=== PATIENT | female | born 1975 | race Caucasian/White ===

== ENCOUNTER 2018-08-23 09:51 | Inpatient (IN) | payer MEDICAID ==
[2018-08-23 09:58] VITALS: BMI 23.9
--- NOTE | 2018-08-23 11:27 | CT ---
Date of service: 08/23/2018 PROCEDURE: CT HEAD WITHOUT CONTRAST. HISTORY: left sided numbness COMPARISON: None available. TECHNIQUE: Axial computed tomography images were obtained through the head/brain without intravenous contrast. Radiation dose: Total exam DLP = 1996.76 mGy-cm. This CT exam was performed using one or more of the following dose reduction techniques: Automated exposure control, adjustment of the mA and/or kV according to patient size, and/or use of iterative reconstruction technique. FINDINGS: HEMORRHAGE: No intracranial hemorrhage. BRAIN: No mass effect or edema. Taylor-white matter differentiation appears intact. VENTRICLES: No hydrocephalus. CALVARIUM: Unremarkable. PARANASAL SINUSES: Unremarkable as visualized. No significant inflammatory changes. MASTOID AIR CELLS: Unremarkable as visualized. No inflammatory changes. OTHER FINDINGS: None. IMPRESSION: No acute intracranial pathology identified. Please note that MRI with diffusion imaging is more sensitive in the detection of acute ischemic event.
[2018-08-23 11:32] LABS: BASO # 0.1 K/uL (0.0-0.2); BASO % 0.8 % (0.0-2.0); EOS # 0.2 K/uL (0.0-0.7); EOS % 2.6 % (0.0-4.0); HEMOGLOBIN 11.4 g/dL (11.0-16.0); LYMPH # 2.3 K/uL (1.0-4.3); LYMPH % 36.2 % (20.0-40.0); MEAN CELL VOLUME 73.3 fL (81.0-99.0); MEAN CORPUSCULAR HEMOGLOBIN 22.9 pg (27.0-31.0); MEAN CORPUSCULAR HGB CONC 31.3 g/dL (33.0-37.0); MEAN PLATELET VOLUME 8.5 fL (7.2-11.7); MONO # 0.6 K/uL (0.0-0.8); NEUT # 3.2 K/uL (1.8-7.0); NEUT % 51.4 % (50.0-75.0); NRBC % 0.1 % (0.0-2.0); RBC 4.99 Mil/uL (3.80-5.20); RED CELL DISTRIBUTION WIDTH 17.7 % (11.5-14.5); WHITE BLOOD COUNT 6.3 K/uL (4.8-10.8)
[2018-08-23 11:38] LABS: PROTHROMBIN TIME 11.2 SECONDS (9.7-12.2)
[2018-08-23 11:43] LABS: SQUAMOUS EPITHIAL 1 /hpf (0-5); URINE BILIRUBIN NEGATIVE (NEGATIVE); URINE BLOOD NEGATIVE (NEGATIVE); URINE CLARITY Clear (Clear); URINE COLOR Straw (YELLOW); URINE GLUCOSE (UA) NORMAL (Normal); URINE LEUKOCYTE ESTERASE NEG Leu/uL (Negative); URINE PROTEIN NEGATIVE (NEGATIVE); URINE UROBILINOGEN NORMAL mg/dL (0.2-1.0)
[2018-08-23 11:46] LABS: HCG,QUALITATIVE URINE NEGATIVE (NEGATIVE)
[2018-08-23 11:56] LABS: ALB/GLOB RATIO 1.5 (1.0-2.1); ALBUMIN 4.8 g/dL (3.5-5.0); ALT/SGPT 17 U/L (9-52); AST/SGOT 25 U/L (14-36); BLOOD UREA NITROGEN 12 mg/dL (7-17); CALCIUM 9.5 mg/dl (8.6-10.4); GFR NON-AFRICAN AMERICAN > 60
[2018-08-23 12:08] LABS: CK-MB 0.51 ng/mL (0.0-3.38)
--- NOTE | 2018-08-23 13:08 | C.PDOC ---
History Of Present Illness 43 year old female presents to ED with complaint of left facial, arm, and leg numbness since yesterday morning. Patient reports subjective decrease in strength in the left arm. Patient has a PMHx of hypertension and ASD s/p repair in 2009 by catheterization. Patient denies visual changes, slurred speech, gait changes, chest pain, SOB ,and palpitations. Time Seen by Provider: 08/23/18 10:03 Chief Complaint (Nursing): Weakness/Neurological Deficit History Per: Patient History/Exam Limitations: no limitations Onset/Duration Of Symptoms: Days (1) Current Symptoms Are (Timing): Still Present Associated Symptoms Preceding Syncopal Episode: No Predromal Symptoms (Sudden Onset) Seizure Or Post-ictal Symptoms: None Severity: None - Symptoms Of CVA Associated Symptoms: denies: Impaired Speech, New Vision Deficit(Left), New Vision Deficit(Right) Past Medical History Reviewed: Historical Data, Nursing Documentation, Vital Signs Vital Signs: Last Vital Signs Temp 98.0 F 08/23/18 11:29 Pulse 51 L 08/23/18 11:29 Resp 18 08/23/18 11:29 BP 126/53 L 08/23/18 11:29 Pulse Ox 100 08/23/18 11:29 - Medical History PMH: Asthma, HTN Other PMH: ASD s/p repair by catheterization Family History: States: Unknown Family Hx - Social History Hx Tobacco Use: No Hx Alcohol Use: No Hx Substance Use: No - Immunization History Hx Tetanus Toxoid Vaccination: No Hx Influenza Vaccination: No Hx Pneumococcal Vaccination: No Review Of Systems Constitutional: Negative for: Fever, Chills, Weakness Eyes: Negative for: Vision Change Cardiovascular: Negative for: Chest Pain, Palpitations Respiratory: Negative for: Cough, Shortness of Breath Neurological: Positive for: Numbness (left facial, arm, and leg ), Other (decrease in strength in th left arm). Negative for: Weakness, Incoordination, Change in Speech, Dizziness Physical Exam - Physical Exam Appears: Non-toxic, No Acute Distress, Other (comfortable) Skin: Normal Color, Warm, Dry Head: Atraumatic, Normacephalic Eye(s): bilateral: Normal Inspection, PERRL, EOMI Neck: Normal ROM, Supple Chest: Symmetrical, No Deformity Cardiovascular: Rhythm Regular, Murmur (systolic murmur 3/6) Respiratory: No Accessory Muscle Use, No Rales, No Rhonchi, No Wheezing Gastrointestinal/Abdominal: Soft, No Tenderness Neurological/Psych: Oriented x3, Normal Speech, Normal Cognition, Normal Cranial Nerves, Normal Motor (5/5), Normal Sensation (subjective decreased sensation in the left arm and left leg) Gait: Steady ED Course And Treatment - Laboratory Results Result Diagrams: 08/23/18 11:22 08/23/18 11:22 Lab Results: PT 11.2 SECONDS (9.7-12.2) 08/23/18 11:22 INR 1.0 08/23/18 11:22 APTT 37 SECONDS (21-34) H 08/23/18 11:22 Troponin I < 0.0120 ng/mL (0.00-0.120) 08/23/18 11:22 Total Bilirubin 0.4 mg/dL (0.2-1.3) 08/23/18 11:22 AST 25 U/L (14-36) 08/23/18 11:22 ALT 17 U/L (9-52) 08/23/18 11:22 Alkaline Phosphatase 83 U/L (38-126) 08/23/18 11:22 Total Protein 8.1 g/dL (6.3-8.3) 08/23/18 11:22 Albumin 4.8 g/dL (3.5-5.0) 08/23/18 11:22 Globulin 3.3 gm/dL (2.2-3.9) 08/23/18 11:22 Albumin/Globulin Ratio 1.5 (1.0-2.1) 08/23/18 11:22 Urine Color Straw (YELLOW) 08/23/18 11:22 Urine Clarity Clear (Clear) 08/23/18 11:22 Urine pH 6.0 (5.0-8.0) 08/23/18 11:22 Ur Specific [place] 1.005 (1.003-1.030) 08/23/18 11:22 Urine Protein Negative mg/dL (NEGATIVE) 08/23/18 11:22 Urine Glucose (UA) Normal mg/dL (Normal) 08/23/18 11:22 Urine Ketones Negative mg/dL (NEGATIVE) 08/23/18 11:22 Urine Blood Negative (NEGATIVE) 08/23/18 11:22 Urine Nitrate Negative (NEGATIVE) 08/23/18 11:22 Urine Bilirubin Negative (NEGATIVE) 08/23/18 11:22 Urine Urobilinogen Normal mg/dL (0.2-1.0) 08/23/18 11:22 Ur Leukocyte Esterase Neg [place]/uL (Negative) 08/23/18 11:22 Urine WBC (Auto) < 1 /hpf (0-5) 08/23/18 11:22 Urine RBC (Auto) 1 /hpf (0-3) 08/23/18 11:22 Ur Squamous Epith Cells 1 /hpf (0-5) 08/23/18 11:22 Urine HCG, Qual Negative (NEGATIVE) 08/23/18 11:22 Urine HCG, Qual Negative (NEGATIVE) 08/23/18 11:22 ECG: Interpreted By Me, Viewed By Me ECG Rhythm: Sinus Bradycardia Interpretation Of ECG: Short [place] interval. Normal axis. No delta waves. No acute ST/T wave changes. Rate From EC O2 Sat by Pulse Oximetry: 100 - CT Scan/US Head CT Other Rad Studies (CT/US): Interpreted By Me, Read By Radiologist CT/US Interpretation: IMPRESSION: No acute intracranial pathology identified. Please note that MRI with diffusion imaging is more sensitive in the detection of acute ischemic event. Progress Note: Head CT and EKG ordered for patient. Labs ordered with troponin, UA, and U-preg. NIHSS Stroke Scale 2 - Date/Time Evaluation Performed Date Performed: 08/23/18 Time Performed: 10:10 When Was NIHSS Performed: Baseline - How Severe is the Stroke Level of Consciousness: 0=Alert LOC to Questions: 0=Both comments correct LOC to commands: 0=Obeys both correctly Best Gaze: 0=Normal Visual: 0=No visual loss Facial: 0=Normal Motor Arm - Left: 0=No drift Motor Arm - Right: 0=No drift Motor Leg - Left: 0=No drift Motor Leg - Right: 0=No drift Limb Ataxia: 0=Absent Sensory: 1=Mild to moderate loss (LEFT FACE, LEFT ARM, LEFT LEG) Best Language: 0=No aphasia Dysarthia: 0=Normal articulation Extinction & Inattention (Neglect): 0=Normal, no object Score: 1 rTPA Inclusion/Exclusion - Refusal of Treatment Patient Refused Treatment: No - Inclusion Criteria for Altepase Patient is 18 years or Older: Yes The Clinical Diagnosis of Ischemic Stroke That is Causing a Potentially Disabling Neurological Deficit: Yes Time of Onset is Well Established to be Less Than 270 Minute Before Treatment Would Begin: No Risk/Benefit Discussed With Patient/Family Member Present: No Disposition - Disposition Forms: [employer] (Welsh) - Scribe Statement The provider has reviewed the documentation as recorded by the Scribe (Yuki Emanuel) All medical record entries made by the Scribe were at my direction and personally dictated by me. I have reviewed the chart and agree that the record accurately reflects my personal performance of the history, physical exam, medical decision making, and the department course for this patient. I have also personally directed, reviewed, and agree with the discharge instructions and disposition.
--- NOTE | 2018-08-23 13:57 | CP.PCM.HP ---
History of Present Illness - History of Present Illness History of Present Illness: PGY1 medicine history and physician for Dr. Israel Hutchins: Whitney [phone] CC: left sided numbness and tingling This is a 43 year old female with PMH of HTN, asthma, ASD with repair 2009 who presents left sided body numbness and tingling since 8 am yesterday (08/22). Pt states that she was working when the symptoms started, but not doing anything out of the ordinary. She describes complete left sided pain and in tingling, including chest and abdomen. Chest pain is described as 5/10, pressure, nonradiating and a little worse when she presses on it. Denies fever, chills, falls, syncope, slurred speech, visual changes, headache, dizziness, lightheadedness, sob, abdominal pain, n/v/d, recent illness, leg pain or swelling, recent stressors, rash. Pt last saw her PMD 5 days for a check up. He referred her to a retinal speci alist to evaluate her retina. Pt unsure why. he also sent her for a pap smear. PMD: Florentino Kent PMH: HTN, asthma, ASD with repair 2009 PSH: ASD repair 2009 meds: Benazapril 10 mg PO daily, Monteleukast 10 mg PO every once in a while, Ventolin inhaler Allx: none Fhx: mother with HTN. grandmother with brain cancer diagnosed at age 64. SHx: born in [place], came here in 2007. 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 Denies drug, alcohol use. Denies smoking. Present on Admission - Present on Admission Any Indicators Present on Admission: No Review of Systems - Review of Systems All systems: reviewed and no additional remarkable complaints except (as per HPI) - Gastrointestinal Gastrointestinal: Constipation (for half a year) Past Patient History - Past Social History Smoking Status: Never Smoked - CARDIAC Hx Hypertension: Yes - PULMONARY Hx Asthma: Yes - PSYCHIATRIC Hx Substance Use: No - SURGICAL HISTORY Hx Surgeries: Yes Other/Comment: ASD s/p closure - ANESTHESIA Hx Anesthesia: Yes Meds Allergies/Adverse Reactions: Allergies Allergy/AdvReac Type Severity Reaction Status Date / Time No Known Allergies Allergy Verified 08/23/18 09:57 Physical Exam - Constitutional Appears: Non-toxic, No Acute Distress - Head Exam Head Exam: ATRAUMATIC, NORMAL INSPECTION - Eye Exam Eye Exam: EOMI, Normal appearance Pupil Exam: Mydriatic (slightly, but reactive) - ENT Exam ENT Exam: Mucous Membranes Moist - Respiratory Exam Respiratory Exam: Clear to Auscultation Bilateral. absent: Decreased Breath Sounds, Rales, Rhonchi, Wheezes, Stridor - Cardiovascular Exam Cardiovascular Exam: Bradycardia (at approximately 60), +S1, +S2, Systolic Murmur - GI/Abdominal Exam GI & Abdominal Exam: Normal Bowel Sounds, Soft. absent: Distended, Firm, Rebou nd, Rigid, Tenderness - Extremities Exam Extremities exam: Positive for: normal capillary refill, normal inspection. Negative for: calf tenderness, pedal edema, tenderness - Back Exam Back exam: NORMAL INSPECTION. absent: CVA tenderness (L), CVA tenderness (R), rash noted - Neurological Exam Neurological exam: Alert, CN II-XII Intact (decreased sensation to the left side of the face), Normal Gait, Oriented x3, Reflexes Normal Additional comments: 4/5 left upper extremity strength. 5/5 strength in right upper extremity. 5/5 strength in bilateral lower extremity. decreased sensation left sided c4-t1 unable to distingish between pin prick or dull sensation on the left upper extremity No pronator drift Normal babinski - Psychiatric Exam Psychiatric exam: Anxious, Normal Affect, Normal Mood - Skin Skin Exam: Dry, Normal Color, Warm Additional comments: no rash Results - Vital Signs Recent Vital Signs: Last Vital Signs Temp 98.0 F 08/23/18 11:29 Pulse 50 L 08/23/18 13:36 Resp 19 08/23/18 13:36 BP 118/53 L 08/23/18 13:36 Pulse Ox 100 08/23/18 13:36 - Labs Result Diagrams: 08/23/18 11:22 08/23/18 11:22 Labs: Laboratory Results - last 24 hr 08/23/18 08/23/18 08/23/18 10:55 11:22 11:22 WBC 6.3 RBC 4.99 Hgb 11.4 Hct 36.6 MCV 73.3 L D MCH 22.9 L MCHC 31.3 L RDW 17.7 H Plt Count 262 MPV 8.5 Neut % (Auto) 51.4 Lymph % (Auto) 36.2 [place] % (Auto) 9.0 Eos % (Auto) 2.6 Baso % (Auto) 0.8 Neut # (Auto) 3.2 Lymph # (Auto) 2.3 [place] # (Auto) 0.6 Eos # (Auto) 0.2 Baso # (Auto) 0.1 PT 11.2 INR 1.0 APTT 37 H Sodium Potassium Chloride Carbon Dioxide Anion Gap BUN Creatinine Est GFR ( Amer) Est GFR (Non-Af Amer) POC Glucose (mg/dL) 114 H Random Glucose Calcium Total Bilirubin AST ALT Alkaline Phosphatase Total Creatine Kinase CK-MB (Mass) Troponin I Total Protein Albumin Globulin Albumin/Globulin Ratio Urine Color Urine Clarity Urine pH Ur Specific [place] Urine Protein Urine Glucose (UA) Urine Ketones Urine Blood Urine Nitrate Urine Bilirubin Urine Urobilinogen Ur Leukocyte Esterase Urine WBC (Auto) Urine RBC (Auto) Ur Squamous Epith Cells Urine HCG, Qual 08/23/18 08/23/18 11:22 11:22 WBC RBC Hgb Hct MCV MCH MCHC RDW Plt Count MPV Neut % (Auto) Lymph % (Auto) [place] % (Auto) Eos % (Auto) Baso % (Auto) Neut # (Auto) Lymph # (Auto) [place] # (Auto) Eos # (Auto) Baso # (Auto) PT INR APTT Sodium 140 Potassium 4.4 Chloride 105 Carbon Dioxide 24 Anion Gap 15 BUN 12 Creatinine 0.5 L Est GFR ( Amer) > 60 Est GFR (Non-Af Amer) > 60 POC Glucose (mg/dL) Random Glucose 97 D Calcium 9.5 Total Bilirubin 0.4 AST 25 ALT 17 Alkaline Phosphatase 83 Total Creatine Kinase 49 CK-MB (Mass) 0.51 Troponin I < 0.0120 Total Protein 8.1 Albumin 4.8 Globulin 3.3 Albumin/Globulin Ratio 1.5 Urine Color Straw Urine Clarity Clear Urine pH 6.0 Ur Specific [place] 1.005 Urine Protein Negative Urine Glucose (UA) Normal Urine Ketones Negative Urine Blood Negative Urine Nitrate Negative Urine Bilirubin Negative Urine Urobilinogen Normal Ur Leukocyte Esterase Neg Urine WBC (Auto) < 1 Urine RBC (Auto) 1 Ur Squamous Epith Cells 1 Urine HCG, Qual Negative Assessment & Plan - Assessment and Plan (Free Text) Assessment: This is a 43 year old female with PMH of HTN, asthma, ASD with repair 2009 who presents left sided body numbness and tingling since 8 am yesterday (08/22). Plan: Left sided paresthesias Head CT shows no abnormality MRI brain pending MRA head and neck without contrast pending CXR pending Echocardiogram with bubble study pending EKG shows sinus dennise cardia at 54 with short pr interval; no acute STTW changes. ASA 325 given in the ED Will start ASA 81 mg PO once daily in am Will give crestor 20 mg PO now, continue tomorrow evening as well. Neurology, Dr. Ferris, consulted. Recommendations appreciated. Aspiration, fall, seizure precautions Permissive hypertension at this time Bradycardia Currently asymptomatic Pt is on telemetry Continue to monitor Hx of HTN Home benazepril 10 mg for now to allow for permissive htn Lipid panel pending HgbA1c pending Hx of asthma Hold home Monteleukast for now Will consider albuterol if needed PPx: GI: none VTE: SCDs HHD Aspiration, fall, seizure precautions PT/OT eval
--- NOTE | 2018-08-23 15:57 | RAD ---
Chest x-ray single frontal view HISTORY: Bradycardia. COMPARISON: 07/12/2014 FINDINGS: Mild venous congestion. Heart size within normal limits. Bibasilar breast shadows. IMPRESSION: Mild venous congestion. Bibasilar breast shadows.
--- NOTE | 2018-08-23 16:15 | CP.PCM.CON ---
<Joann Henderson P - Last Filed: 08/23/18 17:55> History of Present Illness - History of Present Illness History of Present Illness: Consult note for Dr. Ferris. 43 year old female with PMHx of HTN, asthma, ASD with repair 2009 who presented to the ED with L sided numbness, tingling and weakness extending from head to the feet. She also reports pain to the entire L side of her body. Symptoms began yesterday at 8am. Patient states she has felt similar symptoms in the past prior to having her ASD repaired in 2009. Patient denies trauma, slurred speech, visual changes, headache, dizziness, lightheadedness. CT Head shows no acute intracranial pathology. MRI brain and MRA head/neck ordered. PMH: HTN, asthma, ASD with repair 2009 PSH: ASD repair 2009 meds: Benazapril 10 mg PO daily, Monteleukast 10 mg PO every once in a while, Ventolin inhaler Allg: none Fhx: mother with HTN. grandmother with brain cancer diagnosed at age 64. SHx: Denies illicit drug, alcohol use, and smoking. Review of Systems - Review of Systems All systems: reviewed and no additional remarkable complaints except (as per HPI) Past Patient History - Past Social History Smoking Status: Never Smoked - CARDIAC Hx Hypertension: Yes - PULMONARY Hx Asthma: Yes - PSYCHIATRIC Hx Substance Use: No - SURGICAL HISTORY Hx Surgeries: Yes Other/Comment: ASD s/p closure - ANESTHESIA Hx Anesthesia: Yes Meds Allergies/Adverse Reactions: Allergies Allergy/AdvReac Type Severity Reaction Status Date / Time No Known Allergies Allergy Verified 08/23/18 09:57 - Medications Medications: Current Medications Aspirin (Ecotrin) 81 mg PO DAILY [facility] Rosuvastatin Calcium (Crestor) 20 mg PO HS [facility] Physical Exam - Constitutional Appears: Non-toxic, No Acute Distress - Head Exam Head Exam: ATRAUMATIC, NORMOCEPHALIC - Eye Exam Eye Exam: EOMI, Normal appearance, PERRL - ENT Exam ENT Exam: Mucous Membranes Moist - Neck Exam Neck exam: Positive for: Full Rom, Normal Inspection - Respiratory Exam Respiratory Exam: NORMAL BREATHING PATTERN. absent: Respiratory Distress - Extremities Exam Extremities exam: Positive for: full ROM, normal inspection - Neurological Exam Neurological exam: Alert, CN II-XII Intact, Oriented x3 Additional comments: Decreased sensation to soft touch on the L compared to the R. 3+ L bicept and L patellar DTRs, 2+ on the R. 5/5 muscle strength all extremities. - Psychiatric Exam Psychiatric exam: Normal Affect, Normal Mood - Skin Skin Exam: Dry, Intact, Normal Color, Warm Results - Vital Signs Recent Vital Signs: Last Vital Signs Temp 98.2 F 08/23/18 15:54 Pulse 50 L 08/23/18 15:54 Resp 16 08/23/18 15:54 BP 100/47 L 08/23/18 15:54 Pulse Ox 99 08/23/18 15:54 - Labs Result Diagrams: 08/23/18 11:22 08/23/18 11:22 Labs: Laboratory Results - last 24 hr 08/23/18 08/23/18 08/23/18 10:55 11:22 11:22 WBC 6.3 RBC 4.99 Hgb 11.4 Hct 36.6 MCV 73.3 L D MCH 22.9 L MCHC 31.3 L RDW 17.7 H Plt Count 262 MPV 8.5 Neut % (Auto) 51.4 Lymph % (Auto) 36.2 Hanson % (Auto) 9.0 Eos % (Auto) 2.6 Baso % (Auto) 0.8 Neut # (Auto) 3.2 Lymph # (Auto) 2.3 Hanson # (Auto) 0.6 Eos # (Auto) 0.2 Baso # (Auto) 0.1 PT 11.2 INR 1.0 APTT 37 H Sodium Potassium Chloride Carbon Dioxide Anion Gap BUN Creatinine Est GFR ( Amer) Est GFR (Non-Af Amer) POC Glucose (mg/dL) 114 H Random Glucose Calcium Total Bilirubin AST ALT Alkaline Phosphatase Total Creatine Kinase CK-MB (Mass) Troponin I Total Protein Albumin Globulin Albumin/Globulin Ratio Urine Color Urine Clarity Urine pH Ur Specific [place] Urine Protein Urine Glucose (UA) Urine Ketones Urine Blood Urine Nitrate Urine Bilirubin Urine Urobilinogen Ur Leukocyte Esterase Urine WBC (Auto) Urine RBC (Auto) Ur Squamous Epith Cells Urine HCG, Qual 08/23/18 08/23/18 11:22 11:22 WBC RBC Hgb Hct MCV MCH MCHC RDW Plt Count MPV Neut % (Auto) Lymph % (Auto) Hanson % (Auto) Eos % (Auto) Baso % (Auto) Neut # (Auto) Lymph # (Auto) Hanson # (Auto) Eos # (Auto) Baso # (Auto) PT INR APTT Sodium 140 Potassium 4.4 Chloride 105 Carbon Dioxide 24 Anion Gap 15 BUN 12 Creatinine 0.5 L Est GFR ( Amer) > 60 Est GFR (Non-Af Amer) > 60 POC Glucose (mg/dL) Random Glucose 97 D Calcium 9.5 Total Bilirubin 0.4 AST 25 ALT 17 Alkaline Phosphatase 83 Total Creatine Kinase 49 CK-MB (Mass) 0.51 Troponin I < 0.0120 Total Protein 8.1 Albumin 4.8 Globulin 3.3 Albumin/Globulin Ratio 1.5 Urine Color Straw Urine Clarity Clear Urine pH 6.0 Ur Specific [place] 1.005 Urine Protein Negative Urine Glucose (UA) Normal Urine Ketones Negative Urine Blood Negative Urine Nitrate Negative Urine Bilirubin Negative Urine Urobilinogen Normal Ur Leukocyte Esterase Neg Urine WBC (Auto) < 1 Urine RBC (Auto) 1 Ur Squamous Epith Cells 1 Urine HCG, Qual Negative Assessment & Plan - Assessment and Plan (Free Text) Assessment: 43 year old female presents with L sided weakness, numbness and tingling Plan: CT head: no acute intracranial pathology MRI brain: No evidence of intracranial hemorrhage or infarction MRA head/neck-pending -Start ASA 81mg PO daily -Start Crestor 20mg PO daily -Permissive hypertension for 24 hours. Treat if BP over 220/110. D[address] Barrington Henderson, PGY-1 <Cesar Ferris - Last Filed: 08/24/18 11:03> Meds - Medications Medications: Current Medications Aspirin (Ecotrin) 81 mg PO DAILY [facility] Ferrous Sulfate (Feosol) 325 mg PO DAILY [facility] Rosuvastatin Calcium (Crestor) 20 mg PO [facility] Last Admin: 08/23/18 21:19 Dose: 20 mg Results - Vital Signs Recent Vital Signs: Last Vital Signs Temp 98.0 F 08/24/18 07:10 Pulse 53 L 08/24/18 07:10 Resp 20 08/24/18 07:10 BP 116/57 L 08/24/18 07:10 Pulse Ox 100 08/24/18 07:10 - Labs Result Diagrams: 08/24/18 07:07 08/24/18 07:07 Labs: Laboratory Results - last 24 hr 08/23/18 08/23/18 08/23/18 10:55 11:22 11:22 WBC 6.3 RBC 4.99 Hgb 11.4 Hct 36.6 MCV 73.3 L D MCH 22.9 L MCHC 31.3 L RDW 17.7 H Plt Count 262 MPV 8.5 Neut % (Auto) 51.4 Lymph % (Auto) 36.2 Hanson % (Auto) 9.0 Eos % (Auto) 2.6 Baso % (Auto) 0.8 Neut # (Auto) 3.2 Lymph # (Auto) 2.3 Hanson # (Auto) 0.6 Eos # (Auto) 0.2 Baso # (Auto) 0.1 PT 11.2 INR 1.0 APTT 37 H Sodium Potassium Chloride Carbon Dioxide Anion Gap BUN Creatinine Est GFR ( Amer) Est GFR (Non-Af Amer) POC Glucose (mg/dL) 114 H Random Glucose Hemoglobin A1c Calcium Phosphorus Magnesium Iron TIBC % Saturation Ferritin Total Bilirubin AST ALT Alkaline Phosphatase Total Creatine Kinase CK-MB (Mass) Troponin I Total Protein Albumin Globulin Albumin/Globulin Ratio Triglycerides Cholesterol LDL Cholesterol Direct HDL Cholesterol Urine Color Urine Clarity Urine pH Ur Specific [place] Urine Protein Urine Glucose (UA) Urine Ketones Urine Blood Urine Nitrate Urine Bilirubin Urine Urobilinogen Ur Leukocyte Esterase Urine WBC (Auto) Urine RBC (Auto) Ur Squamous Epith Cells Urine HCG, Qual Urine Opiates Screen Urine Methadone Screen Ur Barbiturates Screen Ur Phencyclidine Scrn Ur Amphetamines Screen U Benzodiazepines Scrn U Oth Cocaine Metabols U Cannabinoids Screen 08/23/18 08/23/18 08/23/18 11:22 11:22 16:18 WBC RBC Hgb Hct MCV MCH MCHC RDW Plt Count MPV Neut % (Auto) Lymph % (Auto) Hanson % (Auto) Eos % (Auto) Baso % (Auto) Neut # (Auto) Lymph # (Auto) Hanson # (Auto) Eos # (Auto) Baso # (Auto) PT INR APTT Sodium 140 Potassium 4.4 Chloride 105 Carbon Dioxide 24 Anion Gap 15 BUN 12 Creatinine 0.5 L Est GFR ( Amer) > 60 Est GFR (Non-Af Amer) > 60 POC Glucose (mg/dL) Random Glucose 97 D Hemoglobin A1c Calcium 9.5 Phosphorus Magnesium Iron TIBC % Saturation Ferritin Total Bilirubin 0.4 AST 25 ALT 17 Alkaline Phosphatase 83 Total Creatine Kinase 49 CK-MB (Mass) 0.51 Troponin I < 0.0120 Total Protein 8.1 Albumin 4.8 Globulin 3.3 Albumin/Globulin Ratio 1.5 Triglycerides Cholesterol LDL Cholesterol Direct HDL Cholesterol Urine Color Straw Urine Clarity Clear Urine pH 6.0 Ur Specific [place] 1.005 Urine Protein Negative Urine Glucose (UA) Normal Urine Ketones Negative Urine Blood Negative Urine Nitrate Negative Urine Bilirubin Negative Urine Urobilinogen Normal Ur Leukocyte Esterase Neg Urine WBC (Auto) < 1 Urine RBC (Auto) 1 Ur Squamous Epith Cells 1 Urine HCG, Qual Negative Urine Opiates Screen Negative Urine Methadone Screen Negative Ur Barbiturates Screen Negative Ur Phencyclidine Scrn Negative Ur Amphetamines Screen Negative U Benzodiazepines Scrn Negative U Oth Cocaine Metabols Negative U Cannabinoids Screen Negative 08/23/18 08/23/18 08/24/18 17:43 22:46 07:07 WBC 5.4 RBC 5.01 Hgb 11.4 Hct 36.4 MCV 72.8 L MCH 22.8 L MCHC 31.3 L RDW 17.7 H Plt Count 255 MPV 8.4 Neut % (Auto) 51.5 Lymph % (Auto) 35.2 Hanson % (Auto) 9.5 Eos % (Auto) 3.2 Baso % (Auto) 0.6 Neut # (Auto) 2.8 Lymph # (Auto) 1.9 Hanson # (Auto) 0.5 Eos # (Auto) 0.2 Baso # (Auto) 0.0 PT INR APTT Sodium Potassium Chloride Carbon Dioxide Anion Gap BUN Creatinine Est GFR ( Amer) Est GFR (Non-Af Amer) POC Glucose (mg/dL) Random Glucose Hemoglobin A1c Calcium Phosphorus Magnesium Iron TIBC % Saturation Ferritin Total Bilirubin AST ALT Alkaline Phosphatase Total Creatine Kinase 44 39 CK-MB (Mass) 0.39 0.26 Troponin I < 0.0120 < 0.0120 Total Protein Albumin Globulin Albumin/Globulin Ratio Triglycerides Cholesterol LDL Cholesterol Direct HDL Cholesterol Urine Color Urine Clarity Urine pH Ur Specific [place] Urine Protein Urine Glucose (UA) Urine Ketones Urine Blood Urine Nitrate Urine Bilirubin Urine Urobilinogen Ur Leukocyte Esterase Urine WBC (Auto) Urine RBC (Auto) Ur Squamous Epith Cells Urine HCG, Qual Urine Opiates Screen Urine Methadone Screen Ur Barbiturates Screen Ur Phencyclidine Scrn Ur Amphetamines Screen U Benzodiazepines Scrn U Oth Cocaine Metabols U Cannabinoids Screen 08/24/18 08/24/18 08/24/18 07:07 07:07 07:07 WBC RBC Hgb Hct MCV MCH MCHC RDW Plt Count MPV Neut % (Auto) Lymph % (Auto) Hanson % (Auto) Eos % (Auto) Baso % (Auto) Neut # (Auto) Lymph # (Auto) Hanson # (Auto) Eos # (Auto) Baso # (Auto) PT INR APTT Sodium 133 Potassium 4.0 Chloride 102 Carbon Dioxide 21 L Anion Gap 15 BUN 11 Creatinine 0.4 L Est GFR ( Amer) > 60 Est GFR (Non-Af Amer) > 60 POC Glucose (mg/dL) Random Glucose 117 H D Hemoglobin A1c 6.2 Calcium 8.8 Phosphorus 3.6 Magnesium 2.0 Iron 30 L TIBC 402 % Saturation 7 L Ferritin 5.0 Total Bilirubin 0.6 AST 28 ALT 10 Alkaline Phosphatase 67 Total Creatine Kinase CK-MB (Mass) Troponin I Total Protein 6.9 Albumin 4.2 Globulin 2.7 Albumin/Globulin Ratio 1.5 Triglycerides 130 Cholesterol 170 LDL Cholesterol Direct 112 HDL Cholesterol 51 Urine Color Urine Clarity Urine pH Ur Specific [place] Urine Protein Urine Glucose (UA) Urine Ketones Urine Blood Urine Nitrate Urine Bilirubin Urine Urobilinogen Ur Leukocyte Esterase Urine WBC (Auto) Urine RBC (Auto) Ur Squamous Epith Cells Urine HCG, Qual Urine Opiates Screen Urine Methadone Screen Ur Barbiturates Screen Ur Phencyclidine Scrn Ur Amphetamines Screen U Benzodiazepines Scrn U Oth Cocaine Metabols U Cannabinoids Screen Attending/Attestation - Attestation I have personally seen and examined this patient.: Yes I have fully participated in the care of the patient.: Yes I have reviewed all pertinent clinical information: Yes Notes (Text): I agree with the assessment and plan. The patient does have some mild left side numbness, but does not appear to have any other complaints. She is improving. Will follow imaging and treat accordingly. Thank you for this consultation.
[2018-08-23 16:52] LABS: BARBITURATES, UR NEGATIVE (NEGATIVE); BENZODIAZEPINES, UR NEGATIVE (NEGATIVE); OPIATES, UR NEGATIVE (NEGATIVE); PHENCYCLIDINE, UR NEGATIVE (NEGATIVE)
--- NOTE | 2018-08-23 17:02 | MRI ---
Date of service: 08/23/2018 PROCEDURE: MR Angiography of the neck without contrast HISTORY: History of ASD repair, presents with numbness/tingling COMPARISON: None available. TECHNIQUE: 3D [id number] angiography of the neck was performed. Rotating maximum intensity projection images of the cervical carotid and vertebral arteries were generated. The origins of the common carotid arteries were not visualized, which is a limitation inherent to the non-contrast time of flight technique. FINDINGS: RIGHT CAROTID ARTERIES: Common Carotid Artery: Normal. Carotid Bifurcation: Normal. Internal Carotid Artery:Normal. External Carotid Artery (proximal branches): Normal. LEFT CAROTID ARTERIES: Common Carotid Artery: Normal. Carotid Bifurcation: Normal. Internal Carotid Artery:Normal. External Carotid Artery (proximal branches): Normal. VERTEBRAL ARTERIES: Right Vertebral Artery: Normal. Left Vertebral Artery: Normal. OTHER FINDINGS: None. IMPRESSION: Normal MR Angiography of the neck.
--- NOTE | 2018-08-23 17:07 | MRI ---
Date of service: 08/23/2018 PROCEDURE: MRI BRAIN WITHOUT CONTRAST HISTORY: LEFT ARM/LEG NUMBNESS COMPARISON: Comparison made with prior CT scan the brain 08/23/2018 10:35 a.m.. TECHNIQUE: Multiplanar, multisequence MR images of the brain were obtained without intravenous contrast enhancement. FINDINGS: HEMORRHAGE: No acute parenchymal, subarachnoid nor extra-axial hemorrhage. No evidence of hemosiderin deposition is identified on gradient echo weighted sequence. DWI: No evidence of an acute or early subacute infarction. BRAIN PARENCHYMA: No mass effect or edema. No atrophy or chronic microvascular ischemic changes. VENTRICLES: No obstructive hydrocephalus. CRANIUM: Unremarkable. ORBITS: Orbits and contents unremarkable. PARANASAL SINUSES/MASTOIDS: Mild mucosal thickening seen in the maxillary sinuses left greater than right. Minor mucosal thickening also seen in the few ethmoid air cells. VASCULAR SYSTEM: Visualized major vascular flow voids at skull base patent. OTHER FINDINGS: None. IMPRESSION: No evidence of acute intracranial hemorrhage or infarction. Mild mucoperiosteal inflammatory changes both maxillary sinuses and few ethmoid air cells
--- NOTE | 2018-08-23 18:13 | MRI ---
Date of service: 08/23/2018 PROCEDURE: Magnetic Resonance Angiography Brain HISTORY: History of ASD repair, presents with numbness/tingling COMPARISON: Correlation made with concurrent MRI of the brain. TECHNIQUE: 3D time of flight MR angiography of the intracranial arteries was performed. Rotating maximum intensity projection images were generated. FINDINGS: INTERNAL CAROTID ARTERIES: Unremarkable. The skull base, petrous, cavernous and supraclinoid segments are bilaterally widely patient. ANTERIOR CEREBRAL ARTERIES: Unremarkable. A1 and A2 segments are widely patent. Smaller distal branches unremarkable, as visualized. MIDDLE CEREBRAL ARTERIES: Unremarkable. M1 and M2 segments are widely patent. Perisylvian branches grossly symmetric. POSTERIOR CIRCULATION: Basilar Artery: Unremarkable. Distal Vertebral Arteries: Unremarkable. Posterior Cerebral Arteries: Unremarkable. Posterior Inferior Cerebellar Arteries: Unremarkable. ANEURYSM/ VASCULAR MALFORMATIONS: None. OTHER FINDINGS: None. IMPRESSION: Unremarkable MR angiography of the brain.
[2018-08-23 18:18] LABS: CK-MB 0.39 ng/mL (0.0-3.38)
[2018-08-23] MEDS ORDERED: Pneumococcal 23-Valent Vaccine IM ONE (19:11)
[2018-08-23] MEDS ORDERED: Influenza Vaccine 60 mcg/0.5 mL SYR (4YR UP) IM ONE (20:06)
[2018-08-23 23:13] LABS: CK-MB 0.26 ng/mL (0.0-3.38)
[2018-08-24 01:58] VITALS: RESP 20
[2018-08-24 07:14] LABS: BASO % 0.6 % (0.0-2.0); EOS # 0.2 K/uL (0.0-0.7); EOS % 3.2 % (0.0-4.0); HEMOGLOBIN 11.4 g/dL (11.0-16.0); LYMPH # 1.9 K/uL (1.0-4.3); LYMPH % 35.2 % (20.0-40.0); MEAN CELL VOLUME 72.8 fL (81.0-99.0); MEAN CORPUSCULAR HEMOGLOBIN 22.8 pg (27.0-31.0); MEAN CORPUSCULAR HGB CONC 31.3 g/dL (33.0-37.0); MEAN PLATELET VOLUME 8.4 fL (7.2-11.7); MONO # 0.5 K/uL (0.0-0.8); MONO % 9.5 % (0.0-10.0); NEUT # 2.8 K/uL (1.8-7.0); NEUT % 51.5 % (50.0-75.0); NRBC % 0.1 % (0.0-2.0); RBC 5.01 Mil/uL (3.80-5.20); RED CELL DISTRIBUTION WIDTH 17.7 % (11.5-14.5); WHITE BLOOD COUNT 5.4 K/uL (4.8-10.8)
[2018-08-24 07:29] LABS: IRON 30 ug/dL (37-170)
[2018-08-24 07:40] LABS: % IRON SATURATION 7 (20-55); TOTAL IRON BINDING CAPACITY 402 ug/dL (250-450)
[2018-08-24 07:45] LABS: ALBUMIN 4.2 g/dL (3.5-5.0); BLOOD UREA NITROGEN 11 mg/dL (7-17); CALCIUM 8.8 mg/dl (8.6-10.4); GFR NON-AFRICAN AMERICAN > 60
[2018-08-24 07:46] LABS: ALB/GLOB RATIO 1.5 (1.0-2.1); ALT/SGPT 10 U/L (9-52); AST/SGOT 28 U/L (14-36); HDL CHOLESTEROL 51 mg/dL (30-70)
[2018-08-24 07:50] LABS: LDL CHOLESTEROL 112 mg/dL (0-129)
[2018-08-24] MEDS ORDERED: Ferric Sodium Gluconat Complex 62.5 mg/5 ml Vial IVPB ONE (10:00)
--- NOTE | 2018-08-24 11:54 | CP.PCM.PN ---
Subjective - Date & Time of Evaluation Date of Evaluation: 08/24/18 Time of Evaluation: 11:53 - Subjective Subjective: Neuro F/U Note: Mrs. Zavala was evaluated this morning at bedside. She states that her symptoms have resolved and offers no new complaints today. Denies h/a, dizziness, visual changes, chest pain, sob, n/v/d, fever/chills. Objective - Vital Signs/Intake and Output Vital Signs (last 24 hours): Temp Pulse Resp BP Pulse Ox 98.0 F 53 L 20 116/57 L 100 08/24/18 07:10 08/24/18 07:10 08/24/18 07:10 08/24/18 07:10 08/24/18 07:10 - Medications Medications: Current Medications Aspirin (Ecotrin) 81 mg PO DAILY [facility] Last Admin: 08/24/18 11:15 Dose: 81 mg Ferrous Sulfate (Feosol) 325 mg PO DAILY [facility] Rosuvastatin Calcium (Crestor) 20 mg PO HS [facility] Last Admin: 08/23/18 21:19 Dose: 20 mg - Labs Labs: 08/24/18 07:07 08/24/18 07:07 PT 11.2 SECONDS (9.7-12.2) 08/23/18 11:22 INR 1.0 08/23/18 11:22 APTT 37 SECONDS (21-34) H 08/23/18 11:22 - Constitutional Appears: Well, Non-toxic, No Acute Distress - Head Exam Head Exam: ATRAUMATIC, NORMAL INSPECTION, NORMOCEPHALIC - Eye Exam Eye Exam: EOMI, Normal appearance, PERRL Pupil Exam: NORMAL ACCOMODATION, PERRL - ENT Exam ENT Exam: Mucous Membranes Moist - Neck Exam Neck Exam: Full ROM, Normal Inspection - Respiratory Exam Respiratory Exam: NORMAL BREATHING PATTERN - Extremities Exam Extremities Exam: Full ROM - Back Exam Back Exam: Full ROM - Neurological Exam Neurological Exam: Alert, Awake, CN II-XII Intact, Oriented x3, Reflexes Normal Neuro motor strength exam: Left Upper Extremity: 5, Right Upper Extremity: 5, Left Lower Extremity: 5, Right Lower Extremity: 5 Additional comments: no motor or sensory deficits - Psychiatric Exam Psychiatric exam: Normal Affect, Normal Mood - Skin Skin Exam: Normal Color Assessment and Plan (1) Left-sided weakness Assessment & Plan: -Imaging reviewed -Neurologically cleared for d/c. -F/U with PMD as outpatient. -Continue asa and statin. No Gonzalez DNP, [employer] Discussed with Dr. Ferris Status: Acute
--- NOTE | 2018-08-24 13:28 | CARD ---
APPROVED REPORT Date of service: 08/23/2018 EKG Measurement Heart [id number] [place] [id number] <Conclusion> Sinus bradycardia with short NE Otherwise normal ECG
--- NOTE | 2018-08-24 13:28 | CARD ---
APPROVED REPORT Date of service: 08/23/2018 EKG Measurement Heart [id number] <Conclusion> Normal sinus rhythm with sinus arrhythmia Normal ECG
--- NOTE | 2018-08-24 13:28 | CARD ---
APPROVED REPORT Date of service: 08/23/2018 EKG Measurement Heart [id number] [place] [id number] <Conclusion> Sinus bradycardia Possible Left atrial enlargement Borderline ECG
--- NOTE | 2018-08-24 14:18 | CARD ---
APPROVED REPORT Date of service: 08/24/2018 EXAM: Two-dimensional and M-mode echocardiogram with Doppler and color Doppler. Other Information Quality : GoodRhythm : INDICATION CVA/TIA Echo Enhancing Agent Indication: Rule Out Septal Defect Agent/Amount Used: Agitated Saline Surgery/Intervention s/p ASD Repair 2D DIMENSIONS IVSd0.8 (0.7-1.1cm)LVDd4.4 (3.9-5.9cm) PWd0.8 (0.7-1.1cm)LA Kwvgij76 (18-58mL) LVDs2.9 (2.5-4.0cm)FS (%) 34.4 % LVEF (%)63.7 (>50%)LVEF (Barrios's)67.69 % M-Mode DIMENSIONS Left Atrium (MM)3.44 (2.5-4.0cm)IVSd0.96 (0.7-1.1cm) Aortic Root2.53 (2.2-3.7cm)LVDd4.27 (4.0-5.6cm) Aortic Cusp Exc.1.78 (1.5-2.0cm)PWd0.89 (0.7-1.1cm) FS (%) 40 %LVDs2.55 (2.0-3.8cm) LVEF (%)71 (>50%) Mitral Valve MV E Zpibzfbp819.7cm/sMV A Xojzjlyk90.5cm/sE/A ratio1.4 TDI Lateral E' Peak V10.48cm/sMedial E' Peak V7.25cm/sE/Lateral E'10.1 E/Medial E'14.6 Tricuspid Valve TR Peak Sukiopjl363ed/sTR Peak Gr.[id number] LEFT VENTRICLE The left ventricle is normal size. There is normal left ventricular wall thickness. Left ventricle systolic function is normal. The Ejection Fraction is 65-70%. There is normal LV segmental wall motion. The left ventricular diastolic function is normal. There is no ventricular septal defect visualized. RIGHT VENTRICLE The right ventricle is normal size. The right ventricular systolic function is normal. ATRIA The left atrium size is normal. The right atrium size is normal. Injection of agitated saline as a bubble study failed to demonstrate any intracardiac [id number]-wb-fuzp shunt AORTIC VALVE The aortic valve is tri-cuspid. The aortic valve is normal in structure. There is trace aortic regurgitation. There is no aortic valvular stenosis. MITRAL VALVE The mitral valve is normal in structure. There is no evidence of mitral valve prolapse. There is no mitral valve regurgitation noted. TRICUSPID VALVE The tricuspid valve is normal in structure. There is trace tricuspid regurgitation. There is no pulmonary hypertension. PULMONIC VALVE The pulmonic valve is not well visualized. There is no pulmonic valvular regurgitation. GREAT VESSELS The aortic root is normal in size. The ascending aorta is normal in size. The IVC is normal in size and collapses >50% with inspiration. PERICARDIAL EFFUSION There is no pericardial effusion. <Conclusion> Left ventricle systolic function is normal. The Ejection Fraction is 65-70%. The left ventricular diastolic function is normal. Injection of agitated saline as a bubble study failed to demonstrate any intracardiac ohvcz-dp-[id number] shunt There is trace aortic regurgitation.
--- NOTE | 2018-08-24 15:01 | CP.PCM.DIS ---
Provider - Provider Date of Admission: 08/23/18 13:38 Attending physician: Yaya Wood Jr, MD Consults: 08/23/18 13:39 Physician Consult Routine Comment: LEFT FACE/ARM/LEG NUMBNESS Consulting Provider: Cesar Ferris Consulting Physician: Cesar Ferris Reason for Consult: NEUROLOGY Time Spent in preparation of Discharge (in minutes): 55 Hospital Course - Lab Results Lab Results: Most Recent Lab Values WBC 5.4 K/uL (4.8-10.8) 08/24/18 07:07 RBC 5.01 Mil/uL (3.80-5.20) 08/24/18 07:07 Hgb 11.4 g/dL (11.0-16.0) 08/24/18 07:07 Hct 36.4 % (34.0-47.0) 08/24/18 07:07 MCV 72.8 fL (81.0-99.0) L 08/24/18 07:07 MCH 22.8 pg (27.0-31.0) L 08/24/18 07:07 MCHC 31.3 g/dL (33.0-37.0) L 08/24/18 07:07 RDW 17.7 % (11.5-14.5) H 08/24/18 07:07 Plt Count 255 K/uL (130-400) 08/24/18 07:07 MPV 8.4 fL (7.2-11.7) 08/24/18 07:07 Neut % (Auto) 51.5 % (50.0-75.0) 08/24/18 07:07 Lymph % (Auto) 35.2 % (20.0-40.0) 08/24/18 07:07 [place] % (Auto) 9.5 % (0.0-10.0) 08/24/18 07:07 Eos % (Auto) 3.2 % (0.0-4.0) 08/24/18 07:07 Baso % (Auto) 0.6 % (0.0-2.0) 08/24/18 07:07 Neut # (Auto) 2.8 K/uL (1.8-7.0) 08/24/18 07:07 Lymph # (Auto) 1.9 K/uL (1.0-4.3) 08/24/18 07:07 [place] # (Auto) 0.5 K/uL (0.0-0.8) 08/24/18 07:07 Eos # (Auto) 0.2 K/uL (0.0-0.7) 08/24/18 07:07 Baso # (Auto) 0.0 K/uL (0.0-0.2) 08/24/18 07:07 PT 11.2 SECONDS (9.7-12.2) 08/23/18 11:22 INR 1.0 08/23/18 11:22 APTT 37 SECONDS (21-34) H 08/23/18 11:22 Sodium 133 mmol/L (132-148) 08/24/18 07:07 Potassium 4.0 mmol/L (3.6-5.2) 08/24/18 07:07 Chloride 102 mmol/L (98-107) 08/24/18 07:07 Carbon Dioxide 21 mmol/L (22-30) L 08/24/18 07:07 Anion Gap 15 (10-20) 08/24/18 07:07 BUN 11 mg/dL (7-17) 08/24/18 07:07 Creatinine 0.4 mg/dL (0.7-1.2) L 08/24/18 07:07 Est GFR ( Amer) > 60 08/24/18 07:07 Est GFR (Non-Af Amer) > 60 08/24/18 07:07 POC Glucose (mg/dL) 114 mg/dL (65-110) H 08/23/18 10:55 Random Glucose 117 mg/dL (65-105) H D 08/24/18 07:07 Hemoglobin A1c 6.2 % (4.2-6.5) 08/24/18 07:07 Calcium 8.8 mg/dl (8.6-10.4) 08/24/18 07:07 Phosphorus 3.6 mg/dL (2.5-4.5) 08/24/18 07:07 Magnesium 2.0 mg/dL (1.6-2.3) 08/24/18 07:07 Iron 30 ug/dL (37-170) L 08/24/18 07:07 TIBC 402 ug/dL (250-450) 08/24/18 07:07 % Saturation 7 (20-55) L 08/24/18 07:07 Ferritin 5.0 ng/mL 08/24/18 07:07 Total Bilirubin 0.6 mg/dL (0.2-1.3) 08/24/18 07:07 AST 28 U/L (14-36) 08/24/18 07:07 ALT 10 U/L (9-52) 08/24/18 07:07 Alkaline Phosphatase 67 U/L (38-126) 08/24/18 07:07 Total Creatine Kinase 39 U/L (30-135) 08/23/18 22:46 CK-MB (Mass) 0.26 ng/mL (0.0-3.38) 08/23/18 22:46 Troponin I < 0.0120 ng/mL (0.00-0.120) 08/23/18 22:46 Total Protein 6.9 g/dL (6.3-8.3) 08/24/18 07:07 Albumin 4.2 g/dL (3.5-5.0) 08/24/18 07:07 Globulin 2.7 gm/dL (2.2-3.9) 08/24/18 07:07 Albumin/Globulin Ratio 1.5 (1.0-2.1) 08/24/18 07:07 Triglycerides 130 mg/dL (0-149) 08/24/18 07:07 Cholesterol 170 mg/dL (0-199) 08/24/18 07:07 LDL Cholesterol Direct 112 mg/dL (0-129) 08/24/18 07:07 HDL Cholesterol 51 mg/dL (30-70) 08/24/18 07:07 Urine Color Straw (YELLOW) 08/23/18 11:22 Urine Clarity Clear (Clear) 08/23/18 11:22 Urine pH 6.0 (5.0-8.0) 08/23/18 11:22 Ur Specific [place] 1.005 (1.003-1.030) 08/23/18 11:22 Urine Protein Negative mg/dL (NEGATIVE) 08/23/18 11:22 Urine Glucose (UA) Normal mg/dL (Normal) 08/23/18 11:22 Urine Ketones Negative mg/dL (NEGATIVE) 08/23/18 11:22 Urine Blood Negative (NEGATIVE) 08/23/18 11:22 Urine Nitrate Negative (NEGATIVE) 08/23/18 11:22 Urine Bilirubin Negative (NEGATIVE) 08/23/18 11:22 Urine Urobilinogen Normal mg/dL (0.2-1.0) 08/23/18 11:22 Ur Leukocyte Esterase Neg [place]/uL (Negative) 08/23/18 11:22 Urine WBC (Auto) < 1 /hpf (0-5) 08/23/18 11:22 Urine RBC (Auto) 1 /hpf (0-3) 08/23/18 11:22 Ur Squamous Epith Cells 1 /hpf (0-5) 08/23/18 11:22 Urine HCG, Qual Negative (NEGATIVE) 08/23/18 11:22 Urine Opiates Screen Negative (NEGATIVE) 08/23/18 16:18 Urine Methadone Screen Negative (NEGATIVE) 08/23/18 16:18 Ur Barbiturates Screen Negative (NEGATIVE) 08/23/18 16:18 Ur Phencyclidine Scrn Negative (NEGATIVE) 08/23/18 16:18 Ur Amphetamines Screen Negative (NEGATIVE) 08/23/18 16:18 U Benzodiazepines Scrn Negative (NEGATIVE) 08/23/18 16:18 U Oth Cocaine Metabols Negative (NEGATIVE) 08/23/18 16:18 U Cannabinoids Screen Negative (NEGATIVE) 08/23/18 16:18 - Hospital Course Hospital Course: Upon Admission: CC: left sided numbness and tingling This is a 43 year old female with PMH of HTN, asthma, ASD with repair 2010 who presents left sided body numbness and tingling since 8 am yesterday (08/22). Pt states that she was working when the symptoms started, but not doing anything out of the ordinary. She describes complete left sided pain and in tingling, including chest and abdomen. Chest pain is described as 5/10, p ressure, nonradiating and a little worse when she presses on it. Denies fever, chills, falls, syncope, slurred speech, visual changes, headache, dizziness, lightheadedness, sob, abdominal pain, n/v/d, recent illness, leg pain or swelling, recent stressors, rash. Pt last saw her PMD 5 days for a check up. He referred her to a retinal specialist to evaluate her retina. Pt unsure why. he also sent her for a pap smear. PMD: Florentino Kent PMH: HTN, asthma, ASD with repair 2009 PSH: ASD repair 2010 meds: Benazapril 10 mg PO daily, Monteleukast 10 mg PO every once in a while, Ventolin inhaler Allx: none Fhx: mother with HTN. grandmother with brain cancer diagnosed at age 64. SHx: born in [place], came here in 2007. 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 Denies drug, alcohol use. Denies smoking. Throughout Hospital Course: Patient had Head CT, Head and Neck MRA, Brain MRI, and Echo with bubble study, which all studies had unremarkable findings. All her blood work was normal, for the exception of having iron deficiency anemia and is pre-diabetic with A1C of 6.2. Patient cleared by neurology for discharge. She is to continue with ASA 81mg by mouth daily and Crestor 20mg by mouth at night after dinner. Please review patient's EMR for full record of their hospital course. Discharge Exam - Head Exam Head Exam: ATRAUMATIC, NORMAL INSPECTION, NORMOCEPHALIC - Eye Exam Eye Exam: EOMI, Normal appearance, PERRL Pupil Exam: NORMAL ACCOMODATION - ENT Exam ENT Exam: Mucous Membranes Moist - Respiratory Exam Respiratory Exam: Clear to PA & Lateral, NORMAL BREATHING PATTERN. absent: Decreased Breath Sounds, Rales, Rhonchi, Wheezes - Cardiovascular Exam Cardiovascular Exam: REGULAR RHYTHM, RRR, +S1, +S2 - GI/Abdominal Exam GI & Abdominal Exam: Normal Bowel Sounds, Soft. absent: Distended, Tenderness - Extremities Exam Extremities exam: normal inspection, pedal pulses present - Neurological Exam Neurological exam: Alert, CN II-XII Intact, Oriented x3 - Psychiatric Exam Psychiatric exam: Normal Affect, Normal Mood - Skin Skin Exam: Dry, Intact, Normal Color, Warm Discharge Plan - Discharge Medications Prescriptions: Aspirin [Ecotrin] 81 mg PO DAILY #30 tabec Docusate Sodium [Colace] 100 mg PO BID #60 capsule Ferrous Sulfate [Feosol] 325 mg PO DAILY #30 tab Rosuvastatin Calcium [Crestor] 20 mg PO HS #30 tab - Follow Up Plan Condition: GOOD Disposition: HOME/ ROUTINE Additional Instructions: Please continue taking aspirin 81 mg by mouth every day, Crestor 20mg by mouth at night after dinner. For you iron deficiency anemia, please take Feosol 325mg by mouth daily with Vitamin C. Please also take Colace 100mg by mouth twice a day, as the iron may make you constipated. Please follow up with your primary care physician Dr. Kent within 1-2 weeks. Because of your history of an ASD of your heart, please follow up with a sales service supervisor - one is listed above. Please take care and be well! ----- Por favor, contine tomando aspirina 81 mg por va oral todos los torres, CRESTOR 20mg por va oral por la noche despus de la spray maker. Para usted anemia ferropnica, por favor tome Feosol 325mg por va oral diariamente con vitamina C. Por favor, tambin tome Colace 100mg por la boca dos veces al da, ramiro la plancha puede hacerle constipated. Por favor, odell un seguimiento con gaytan mdico de atencin primaria Dr. kent dentro de 1-2 semanas. Debido a gaytan historia de un Tea de gaytan corazn, por favor, odell un seguimiento con un cardilogo-lamin se enumera arriba. Por favor, tenga cuidado y estar sp! Referrals: Lokesh Gonzales MD [Staff Provider] -
[2018-08-24 18:30] VITALS: PULSE 54
[2018-08-24 18:58] VITALS: BP 135/66; TEMP 97.9; O2SAT 96
== END 2018-08-24 20:07 | disposition home or self-care (01) | DRG 35 ==
LOC: C.ER 09:51 → C.9E 13:38 → UNDOADMOB 13:38 → C.6T 14:50
PROVIDERS: ADMIT Internal Medicine; ATTEND Internal Medicine
DX: R20.2 Paresthesia of skin (principal); R20.0 Anesthesia of skin; I10 Essential (primary) hypertension; J45.909 Unspecified asthma, uncomplicated; Z80.8 Family history of malignant neoplasm of other organs or systems; Z87.74 Personal history of (corrected) congenital malformations of heart and circulatory system; D50.9 Iron deficiency anemia, unspecified; R73.03 Prediabetes